=== PATIENT | male | born 1985 | race Caucasian/White ===

== ENCOUNTER 2017-11-28 21:30 | Emergency (ER) | payer BC, OTHER ==
[~2017-11-28] VITALS: Ht 180.3 cm; Wt 90.7 kg
--- OUTSIDE RECORDS SUMMARY | ~2017-11-28 | XMS | Clinical Summary ---
Demographics + + + | Address | [address] [facility] [address] | | | [place] [address] | + + + | Home Phone | | + + + | Preferred Language | Unknown | + + + | Marital Status | Single | + + + | Methodist Affiliation | Unknown | + + + [...] Team Providers + +------+ + | Care Braille Typist Name | Role | Phone | + +------+ + | No Pcp Per Patient | PP | Unavailable | + +------+ + Source Comments HAN is fully live on both [facility] and [facility] Allergies No Known Allergies Current Medications [...] | | | + +--------+ +--------+-------+---------+ | [facility] | [facility] | xxxx | Agency | | | [...] | | | [place] | | | [phone]: | [address] | | | | | | | | | | | | | [phone] | | | | | | | [phone] | | + +--------+ +--------+ + + | LUIS F ZEPEDA | Agency | Self | [birth year] | Work: | [address] | | [place] | | | 1986 | [phone] | [address] [place] | | | | | | [phone] Home: | [address] | | | | | | | | | | | | | [phone] | | | | | | | [phone] | | + +--------+ +--------+ + +
--- OUTSIDE RECORDS SUMMARY | 2017-11-28 21:34 | XMS ---
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 Elie has no Care Guidelines for this patient. Kristen VISIT COUNT (12 MO.) [facility] TOTAL 2 NOTE: Visits indicate total known visits. ED/C VISIT TRACKING (12 MO.) 11/28/2017 21:30 [facility] [place] TYPE: Emergency COMPLAINT: - R EYE INJURY 11/14/2017 21:[address] [facility] [place] TYPE: Emergency COMPLAINT: - R HAND INJURY DIAGNOSES: - Activity, basketball - Displaced fracture of medial phalanx of right little finger, initial encounter for closed fracture - Caught, crushed, jammed, or pinched between moving objects, initial encounter - Unspecified injury of right wrist, hand and finger(s), initial encounter INPATIENT VISIT TRACKING (12 MO.) No inpatient visits to display in this time frame [email or web address]
[2017-11-29] MEDS ORDERED: NORCO 5-325 TA1 EACH PO (00:16)
--- OUTSIDE RECORDS SUMMARY | 2017-11-29 00:22 | XMS | Clinical Summary ---
Demographics + + + | Address | [address] [facility] [address] | | | [place] [address] | + + + | Home Phone | | + + + | Preferred Language | Unknown | + + + | Marital Status | Single | + + + | Oriental Orthodox Affiliation | Unknown | + + + | Race | or | + + + | Ethnic Group | Not or | + + + Author + + + | Author | [facility] | + + + | Organization | [facility] | + + + | Address | Unknown | + + + | Phone | Unavailable | + + + Support + + +---------+ + | Name | Relationship | Address | Phone | + + +---------+ + | Radha Calhoun | ECON | Unknown | | + + +---------+ + Care Team Providers + +------+ + | Care Shot Peen Operator Name | Role | Phone | + +------+ + | No Pcp Per Patient | PP | Unavailable | + +------+ + Source Comments HAN is fully live on both [facility] Ambulatory and [facility] InPatient.[facility] Allergies No Known Allergies Current Medications No known medications Active Problems No known active problems Social History + +-------+ +--------+------+ | Tobacco Use | Types | Packs/Day | Years | Date | | | | | Used | | + +-------+ +--------+------+ | Never Smoker | | | | | + +-------+ +--------+------+ + + +---------+ + | Alcohol Use | Drinks/We | oz/Week | Comments | | | ek | | | + + +---------+ + | No | | | | + + +---------+ + + + + | Sex Assigned at | Date Recorded | | | | + + + | Not on file | | + + + Last Filed Vital Signs + + + + | Vital Sign | Reading | Time Taken | + + + + | Blood Pressure | - | - | + + + + | Pulse | - | - | + + + + | Temperature | - | - | + + + + | Respiratory Rate | - | - | + + + + | Oxygen Saturation | - | - | + + + + | Inhaled Oxygen | - | - | | Concentration | | | + + + + | Weight | 77.1 kg (170 lb) | 04/17/2009 9:22 AM PST | + + + + | Height | 180.3 cm (5' 11") | 04/17/2009 9:22 AM PST | + + + + | Body Mass Index | 23.71 | 04/17/2009 9:22 AM PST | + + + + Plan of Treatment + + + + + | Health Maintenance | Due Date | Last Done | Comments | + + + + + | INFLUENZA VACCINE | | | | | (FLU SHOT) | 8 | | | + + + + + Results Not on filefrom Last 3 Months Insurance + +--------+ +--------+-------+---------+ | Payer | Benefi | Subscriber | Type | Phone | Address | | | t Plan | ID | | | | | | / | | | | | | | Group | | | | | + +--------+ +--------+-------+---------+ | [employer] | FIRST | xxxxxxxxx | PPO | | | | | CHOICE | | | | | | | | | | | | | | HEALTH | | | | | + +--------+ +--------+-------+---------+ | [facility] | STATELESS | xxxx | Agency | | | | SERVICE | | | | | | | | HEALTH | | | | | | | | | | | | | | SERVIC | | | | | | | E | | | | | + +--------+ +--------+-------+---------+ + +--------+ +--------+ + + | Guarantor Name | Accoun | Relation to | Date | Phone | Billing Address | | | t Type | Patient | of | | | | | | | | | | + +--------+ +--------+ + + | LUIS F ZEPEDA | Person | Self | [birth year] | Work: | [address] | | [place] | [place] | | 1986 | [phone] | [address] [place] | | | [place] | | | [phone] Home: | [address] | | | | | | | | | | | | | [phone] | | | | | | | [address] | | + +--------+ +--------+ + + | LUIS F ZEPEDA | Agency | Self | [birth year] | Work: | [address] | | [place] | | | 1986 | [phone] | [address] [place] | | | | | | [address] Home: | [address] | | | | | | | | | | | | | [phone] | | | | | | | [address] | | + +--------+ +--------+ + +
== END 2017-11-29 00:19 | disposition home or self-care (01) ==
LOC: ED 21:30
DX: S05.01XA Injury of conjunctiva and corneal abrasion without foreign body, right eye, initial encounter (principal); W50.0XXA Accidental hit or strike by another person, initial encounter; Y93.67 Activity, basketball
CPT/HCPCS: 90471; 90715; 99283